=== PATIENT | male | born 1995 | race Two or more races ===

== ENCOUNTER 2019-04-25 08:42 | Emergency (ER) | payer SELFPAY ==
--- NOTE | 2019-04-25 08:56 | EDM.PDOC ---
ED HPI GENERAL MEDICAL PROBLEM - General Stated Complaint: TOOTHACHE Time Seen by Provider: 04/25/19 08:56 Source of Information: Reports: Patient History Limitations: Reports: No Limitations - History of Present Illness INITIAL COMMENTS - FREE TEXT/NARRATIVE: He did see a dentist in [place]. It was recommended that he had his wisdom teeth extracted. However that was going to cost $4000 for the set. He does have a lot of pain on the left lower wisdom tooth. He has tried conservative measures and have failed. He does work 13 days out of 2 weeks. He will have to go and have at least the one tooth extracted. He does not have any correction or any debris going down the back the throat. I did give him a shot of Toradol today. I also gave him a prescription for hydrocodone and penicillin. He will continue conservative measures and get himself to a dentist. Onset: Gradual Duration: Getting Worse Location: Reports: Other (Left lower) Quality: Reports: Sharp, Stabbing Severity: Severe Improves with: Reports: None Worsens with: Reports: Breathing Associated Symptoms: Reports: Other (Difficulty sleeping) Treatments OUTPATIENT PHYSICAL THERAPIST: Reports: Aspirin, NSAIDS Left Face/Facial Pain Score (Numeric/FACES): 9 - Related Data Allergies Allergy/AdvReac Type Severity Reaction Status Date / Time No Known Allergies Allergy Verified 04/25/19 09:05 Home Meds: Home Meds Hydrocodone/Acetaminophen [Hydrocodon-Acetaminophen 5-325] 1 - 2 each PO Q4HR PRN #15 tablet 04/25/19 [Rx] Penicillin V Potassium 250 mg PO QID #28 tablet 04/25/19 [Rx] Past Medical History - Past Health History Medical/Surgical History: Denies Medical/Surgical History Social & Family History - Tobacco Use Smoking Status *Q: Current Status Unknown ED ROS ENT - Review of Systems Review Of Systems: ROS reveals no pertinent complaints other than HPI. ED EXAM, ENT - Physical Exam Exam: See Below Exam Limited By: No Limitations General Appearance: Alert, Moderate Distress Mouth/Throat: Dental Pain, Dental Tenderness, Other (Moist and teeth are emerging. Some discomfort into the cervical chain on the left side that this is nominal.). No: Bleeding, Dental Abcess Head: Atraumatic Respiratory/Chest: No Respiratory Distress Cardiovascular: Normal Peripheral Pulses GI/Abdominal: Normal Bowel Sounds Course - Vital Signs Last Recorded V/S: Last Vital Signs Temp 36.2 C 04/25/19 08:45 Pulse 92 04/25/19 08:45 Resp 16 04/25/19 08:45 BP 145/92 H 04/25/19 08:45 Pulse Ox 97 04/25/19 08:45 - Orders/Labs/Meds Meds: Medications Discontinued Medications Generic Name Dose Route Start Last Admin Trade Name Freq PRN Reason Stop Dose Admin Ketorolac Tromethamine 15 mg 04/25/19 09:14 04/25/19 09:24 Toradol IM 04/25/19 09:15 15 mg ONETIME ONE Administration Departure - Departure Time of Disposition: : Disposition: Home, Self-Care 01 Condition: Good Clinical Impression: Dental caries - Discharge Information *PRESCRIPTION DRUG MONITORING PROGRAM REVIEWED*: Not Applicable *COPY OF PRESCRIPTION DRUG MONITORING REPORT IN PATIENT BIN: Not Applicable Prescriptions: Hydrocodone/Acetaminophen [Hydrocodon-Acetaminophen 5-325] 1 - 2 each PO Q4HR PRN #15 tablet PRN Reason: Pain Penicillin V Potassium 250 mg PO QID #28 tablet Forms: ED Department Discharge Additional Instructions: See the dentist to have at least the problematic tooth removed. I don't think you need a CT scan. Take the oral antibiotics. Take the pain medications sparingly. Do not take at work or safety sensitive activities. You received toradol today which is a good antiinflammatory medication.
[2019-04-25] MEDS ORDERED: Ketorolac 30 MG/ML SDV IM ONE (09:14)
== END 2019-04-25 09:35 | disposition home or self-care (01) ==
LOC: VM.ED 08:42
DX: K02.9 Dental caries, unspecified (principal)
CPT/HCPCS: 96372; 99282; J1885; 99283-GF

== ENCOUNTER 2019-06-01 09:04 | Emergency (ER) | payer OTHER ==
[2019-06-01] MEDS ORDERED: Acetaminophen/oxyCODONE 325-5 MG Tab PO ONE (09:28)
--- NOTE | 2019-06-01 09:29 | EDM.PDOC ---
ED HPI GENERAL MEDICAL PROBLEM - General Chief Complaint: General Stated Complaint: FELL Time Seen by Provider: 06/01/19 09:15 - History of Present Illness INITIAL COMMENTS - FREE TEXT/NARRATIVE: Pt presents s/p fall off 1 ft platform. Happened at 0500 this am. Pt states he hit his head at that time, was confused earlier, states he feels more clear now , but still has some confusion. Pt with hx of concussion in past playing football. Onset: Today Onset Date: 06/01/19 Onset Time: 05:00 Left Back Pain Score (Numeric/FACES): 9 - Related Data Allergies Allergy/AdvReac Type Severity Reaction Status Date / Time No Known Allergies Allergy Verified 06/01/19 09:15 Home Meds: Home Meds . [No Known Home Meds] 06/01/19 [History] Past Medical History - Past Health History Medical/Surgical History: Denies Medical/Surgical History Social & Family History - Tobacco Use Smoking Status *Q: Never Smoker - Recreational Drug Use Recreational Drug Use: No ED ROS GENERAL - Review of Systems Review Of Systems: See Below Constitutional: Reports: No Symptoms HEENT: Reports: No Symptoms Respiratory: Reports: No Symptoms Cardiovascular: Reports: No Symptoms Endocrine: Reports: No Symptoms GI/Abdominal: Reports: No Symptoms : Reports: No Symptoms Musculoskeletal: Reports: Other (lower left lateral back pain s/p fall ) Skin: Reports: No Symptoms Neurological: Reports: Confusion ED EXAM, GENERAL - Physical Exam Exam: See Below General Appearance: Alert, WD/WN, No Apparent Distress Ears: Normal External Exam, Normal Canal, Hearing Grossly Normal, Normal TMs Nose: Normal Inspection Throat/Mouth: Normal Inspection Head: Normocephalic Neck: Normal Inspection Respiratory/Chest: No Respiratory Distress, Lungs Clear, Normal Breath Sounds, No Accessory Muscle Use, Chest Non-Tender Cardiovascular: Normal Peripheral Pulses Back Exam: Other (pain tenderness left lateral lower back T10-12 area no acute injury noted on x ray ) Neurological: Alert, CN II-XII Intact, Normal Gait, Normal Reflexes, No Motor/ Sensory Deficits, Other (pt with some confusion hx of concussion in past no acute findings on head ct ) Course - Vital Signs Last Recorded V/S: Last Vital Signs Temp 36.1 C 06/01/19 09:07 Pulse 90 06/01/19 09:07 Resp 20 06/01/19 09:07 BP 143/92 H 06/01/19 09:07 Pulse Ox 98 06/01/19 09:07 - Orders/Labs/Meds Meds: Medications Discontinued Medications Generic Name Dose Route Start Last Admin Trade Name Leticia PRN Reason Stop Dose Admin Oxycodone/Acetaminophen 1 tab 06/01/19 09:28 06/01/19 09:31 Percocet 325-5 Mg PO 06/01/19 09:29 1 tab ONETIME ONE Administration Departure - Departure Time of Disposition: 10:49 Disposition: Home, Self-Care 01 Clinical Impression: Concussion, Lower back pain - Discharge Information Instructions: Post-Concussion Syndrome, Acute Back Pain, Adult Referrals: PCP,None [Primary Care Provider] - Forms: ED Department Discharge Additional Instructions: Follow up with your occupational medicine for continued care. No work until released by occupational medicine
--- NOTE | 2019-06-01 10:33 | CR ---
[id number] RAD/RAD Ribs Left W PA Chest; [id number] RAD/RAD Thoracic Spine 3V EXAM: RAD Ribs Left W PA Chest, RAD Thoracic Spine 3V INDICATION: Fall from 1 foot landed on back. Pain in the left lateral neck at T10-T12. COMPARISON: None. FINDINGS: The lungs are clear. The left ribs are normal in appearance without a fracture identified. No pneumothorax or pleural fluid. The thoracic vertebral bodies are normal in height and alignment with no fracture or other acute osseous abnormality. IMPRESSION: 1. Negative chest, left rib and thoracic radiographs. Daniel Angulo MD 06/01/19 1032 Thank you for allowing us to participate in the care of your patient.
--- NOTE | 2019-06-01 10:39 | CT ---
[id number] CT/CT Head WO IV EXAM: CT Head WO IV CLINICAL DATA: TRAUMA COMPARISON: NO PREVIOUS SIMILAR EXAM IS AVAILABLE FOR COMPARISON. FINDINGS: There is no mass or mass effect. There is no hemorrhage or hydrocephalus. There are no extra-axial fluid collections. There are no sites of abnormal attenuation. IMPRESSION: NO PLAIN CT EVIDENCE OF ACUTE INTRACRANIAL PROCESS. Silviano Garcia MD 06/01/19 1037 Thank you for allowing us to participate in the care of your patient.
== END 2019-06-01 10:55 | disposition home or self-care (01) ==
LOC: VM.ED 09:04
DX: S06.0X0A Concussion without loss of consciousness, initial encounter (principal); M54.5 Low back pain; M54.6 Pain in thoracic spine; W17.89XA Other fall from one level to another, initial encounter; Y93.89 Activity, other specified
CPT/HCPCS: 70450; 71101; 72072; 99285; A9270